=== PATIENT | female | born 1940 | race Hispanic/Latino ===

== ENCOUNTER 2017-08-17 12:50 | Outpatient (CLI) | payer MEDICARE ==
--- NOTE | 2017-08-17 19:20 | PET ---
NUCLEAR MEDICINE PET SCAN BRAIN: 08/17/17 HISTORY: 77-year-old female with G31.09, other frontotemporal dementia. TECHNIQUE: IV injection with 10.3 millicuries of F18-FDG. Attenuation correction CT and PET scan of the brain pe rformed. FINDINGS: There is decreased uptake in the bilateral anterior temporal lobes, which is typical for FTD. Uptake in the bilateral frontal lobes is relatively preserved, which would be atypical for FTD (there is asymmetrically mildly decreased uptake in some portions of the left frontal lobe compared to the right). Uptake in the bilateral basal ganglia and thalami is preserved, which is typical for FTD. Uptake in the precuneus and posterior cingulate gyrus is preserved, while uptake in the anterior cing ulate gyrus is decreased, which is typical pattern for early FTD. The uptake in the bilateral posterior temporal parietal, and occipital lobes, is preserved, which is also typical for FTD. IMPRESSION: Overall pattern is consistent with frontotemporal dementia, perhaps a temporal-predominant variant. POS: [facility]
== END 2017-08-17 12:51 | disposition home or self-care (01) ==
LOC: PET 12:50
PROVIDERS: ATTEND Psychiatry & Neurology Neurology
DX: G31.09 Other frontotemporal neurocognitive disorder (principal)
CPT/HCPCS: 78608; A9552

== ENCOUNTER 2017-11-14 14:41 | Emergency (ER) | payer MEDICARE ==
[2017-11-14 15:47] LABS: #Lymphocytes 0.9 thou/uL (1.20-3.40); #Monocytes 0.4 thou/uL (0.11-0.59); %Basophils 0.6 % (0.0-1.0); %Eosinophils 1.3 % (0.0-10.0); %Lymphocytes 26.1 % (21.0-51.0); %Monocytes 11.1 % (0.0-10.0); Hemoglobin 11.7 g/dL (12.0-16.0); Mean Corpuscular Hemoglobin 33.6 pg (27.0-31.0); Platelet Count 125 thou/uL (130-400); White Blood Cell (WBC) Count 3.3 thou/uL (4.8-10.8)
[2017-11-14 15:54] LABS: INR-International Normal Ratio 1.3; PTT 37.9 SEC (22.9-36.1); Prothrombin Time 16.9 SEC (12.0-14.7)
[2017-11-14 16:07] LABS: ALT (SGPT) Less than 7 U/L (8-55); AST (SGOT) 13 U/L (5-34); Albumin 3.9 g/dL (3.4-4.8); Alkaline Phosphatase 30 U/L (40-150); Anion Gap 13 mmol/L (10-20); BUN (Urea Nitrogen) 28 mg/dL (9.8-20.1); Bilirubin, Total 0.5 mg/dL (0.2-1.2); Calc. Creatinine Clearance 0 mL/min (70-130); Calcium 9.9 mg/dL (7.8-10.44); Carbon Dioxide 26 mmol/L (23-31); Chloride 103 mmol/L (98-107); Estimated GFR-MDRD 39; Globulin 2.7 g/dL (2.4-3.5); Glucose 86 mg/dL (83-110); Potassium 4.1 mmol/L (3.5-5.1); Protein, Total 6.6 g/dL (6.0-8.3); Sodium 138 mmol/L (136-145)
--- NOTE | 2017-11-14 16:35 | CT ---
BRAIN CT WITHOUT IV CONTRAST: History: 77-year-old female with history of head injury following trauma. Comparison: 04-21-17 FINDINGS: Atrophy and chronic white matter ischemic change. Old lacunar infarct changes. No mass or midline yuliya ft. No acute hemorrhage. Sinuses and mastoids are clear. IMPRESSION: Stable atrophy and chronic white matter ischemic changes. No mass or bleed. POS: [facility]
[2017-11-14] MEDS ORDERED: Adacel (T-DAP) 0.5 ML VIAL ONE (16:49)
== END 2017-11-14 18:20 | disposition home or self-care (01) ==
LOC: ERS 14:41
DX: S01.01XA Laceration without foreign body of scalp, initial encounter (principal); E78.5 Hyperlipidemia, unspecified; F03.90 Unspecified dementia, unspecified severity, without behavioral disturbance, psychotic disturbance, mood disturbance, and anxiety; I25.10 Atherosclerotic heart disease of native coronary artery without angina pectoris; E11.9 Type 2 diabetes mellitus without complications; I10 Essential (primary) hypertension; F32.9 Major depressive disorder, single episode, unspecified; Z79.02 Long term (current) use of antithrombotics/antiplatelets; Z79.82 Long term (current) use of aspirin; Z79.899 Other long term (current) drug therapy; Z79.84 Long term (current) use of oral hypoglycemic drugs; W01.190A Fall on same level from slipping, tripping and stumbling with subsequent striking against furniture, initial encounter; Y92.009 Unspecified place in unspecified non-institutional (private) residence as the place of occurrence of the external cause
CPT/HCPCS: 12002; 70450; 80053; 85025; 85610; 85730; 90471; 90715

== ENCOUNTER 2017-11-22 17:02 | Emergency (ER) | payer MEDICARE ==
[2017-11-22] MEDS ORDERED: Lidocaine 1% PF 5 ML VIAL ONE (17:21)
== END 2017-11-22 18:15 | disposition home or self-care (01) ==
LOC: SCSER 17:02
DX: S01.01XD Laceration without foreign body of scalp, subsequent encounter (principal); I25.10 Atherosclerotic heart disease of native coronary artery without angina pectoris; E11.9 Type 2 diabetes mellitus without complications; I10 Essential (primary) hypertension; F32.9 Major depressive disorder, single episode, unspecified; Z86.73 Personal history of transient ischemic attack (TIA), and cerebral infarction without residual deficits; Z79.82 Long term (current) use of aspirin; Z79.899 Other long term (current) drug therapy; X58.XXXD Exposure to other specified factors, subsequent encounter
CPT/HCPCS: J2001

== ENCOUNTER 2019-03-31 13:54 | Outpatient (CLI) | payer MEDICARE, OTHER ==
--- NOTE | 2019-03-31 14:46 | MMO ---
Bilateral MAMMO Bilat Screen [facility]. CLINICAL HISTORY: Patient is 78 years old and is seen for screening. The patient has the following family history of breast cancer: daughter, at age 48 and daughter, at age 49. The patient has no personal history of cancer. VIEWS: The views performed were: bilateral craniocaudal with tomosynthesis and bilateral mediolateral oblique with tomosynthesis. FILMS COMPARED: The present examination has been compared to prior imaging studies performed at [facility] on 03/25/2015, 03/27/2016, 03/29/2017 and 03/30/2018. MAMMOGRAM FINDINGS: The breasts are heterogeneously dense, which could obscure a lesion on mammography. There are stable benign appearing calcifications seen in both breasts. There are also vascular calcifications. There are no suspicious masses, suspicious calcifications, or new areas of architectural distortion. IMPRESSION: THERE IS NO MAMMOGRAPHIC EVIDENCE OF MALIGNANCY. A ROUTINE FOLLOW-UP MAMMOGRAM IN 1 YEAR IS RECOMMENDED. THE RESULTS OF THIS EXAM WERE SENT TO THE PATIENT. ACR BI-RADS Category 2 - Benign finding MAMMOGRAPHY NOTE: 1. A negative mammogram report should not delay a biopsy if a dominant of clinically suspicious mass is present. 2. Approximately 10% to 15% of breast cancers are not detected by mammography. 3. Adenosis and dense breasts may obscure an underlying neoplasm. Reported by: MAXIMINO PARRA MD Electonically Signed: [id number]
== END 2019-03-31 13:55 | disposition home or self-care (01) ==
LOC: BICMAMMO 13:54
PROVIDERS: ATTEND Specialist
DX: Z12.31 Encounter for screening mammogram for malignant neoplasm of breast (principal); Z80.3 Family history of malignant neoplasm of breast
CPT/HCPCS: 77063; 77067

== ENCOUNTER 2021-08-23 10:50 | Inpatient (IN) | payer MEDICARE ==
[2021-08-23 11:36] LABS: #Eosinphils 0.1 thou/uL (0.0-0.7); #Lymphocytes 0.8 thou/uL (1.20-3.40); #Monocytes 0.5 thou/uL (0.11-0.59); #Neutrophils 5.7 thou/uL (1.40-6.50); %Basophils 0.4 % (0.0-1.0); %Eosinophils 1.8 % (0.0-10.0); %Lymphocytes 10.6 % (21.0-51.0); %Neutrophils 80.3 % (42.0-75.0); Hemoglobin 12.4 g/dL (12.0-16.0); Mean Corpuscular HGB CONC 33.4 g/dL (32.0-36.0); Mean Corpuscular Hemoglobin 33.6 pg (27.0-31.0); Platelet Count 142 thou/uL (130-400); RBC Distribution Width 12.8 % (11.5-14.5); White Blood Cell (WBC) Count 7.2 thou/uL (4.8-10.8)
[2021-08-23 11:47] LABS: INR-International Normal Ratio 1.1; Prothrombin Time 14.5 sec (12.0-14.7)
[2021-08-23 11:48] LABS: PTT 37.5 sec (22.9-36.1)
[2021-08-23] MEDS ORDERED: Promethazine HCl 25 MG/ML VIAL IM PRN (11:54)
[2021-08-23] MEDS ORDERED: Dextrose 5% in Water 1,000 ML IV PRN (11:54)
[2021-08-23] MEDS ORDERED: Dextrose 50% Abboject 50 ML SYRINGE SLOW IVP PRN (11:54)
[2021-08-23] MEDS ORDERED: Ondansetron PF 4 MG/2 ML Vial IVP PRN (11:54)
[2021-08-23] MEDS ORDERED: hydrALAZINE 20 MG/ML VIAL SLOW IVP PRN (11:55)
[2021-08-23 11:58] LABS: ALT (SGPT) 8 U/L (8-55); AST (SGOT) 17 U/L (5-34); Albumin 3.8 g/dL (3.4-4.8); Alkaline Phosphatase 69 U/L (40-110); Anion Gap 8 mmol/L (10-20); BUN (Urea Nitrogen) 18 mg/dL (9.8-20.1); Bilirubin, Total 0.6 mg/dL (0.2-1.2); Calc. Creatinine Clearance 0 mL/min (70-130); Calcium 9.6 mg/dL (7.8-10.44); Carbon Dioxide 31 mmol/L (23-31); Chloride 102 mmol/L (98-107); Globulin 3.3 g/dL (2.4-3.5); Glucose 141 mg/dL (83-110); Potassium 4.4 mmol/L (3.5-5.1); Protein, Total 7.1 g/dL (5.8-8.1); Sodium 137 mmol/L (136-145)
[2021-08-23] MEDS ORDERED: ceFAZolin 2 GM/DEX 5% 100 ML BAG ONE (12:35)
[2021-08-23 13:07] LABS: SARS-CoV-2 NAA Rapid Test Not Detected (NotDetected)
[2021-08-23] MEDS: Morphine 4 MG/ML VIAL SLOW IVP PRN (15:14)
[2021-08-23 15:30] VITALS: BMI 28.3
[2021-08-23 20:09] LABS: Glucose 107 mg/dL (83-110)
[2021-08-23 20:18] LABS: Troponin I 0.022 ng/mL (< 0.028)
[2021-08-23] MEDS: Famotidine 20 MG TAB PO SCH (20:50)
[2021-08-23] MEDS: Rosuvastatin 10 MG TAB PO SCH (20:51)
[2021-08-23] MEDS: Potassium Chloride 20 MEQ TAB PO SCH (20:51)
[2021-08-23] MEDS: Carvedilol 25 MG TAB PO SCH (20:51)
[2021-08-23] MEDS: Ferrous Sulfate 325 MG TAB PO SCH (20:54)
[2021-08-24 00:11] LABS: Glucose 132 mg/dL (83-110)
[2021-08-24] MEDS: Morphine 4 MG/ML VIAL SLOW IVP PRN (04:06)
[2021-08-24 06:09] LABS: #Lymphocytes 0.5 thou/uL (1.20-3.40); #Monocytes 0.6 thou/uL (0.11-0.59); #Neutrophils 4.5 thou/uL (1.40-6.50); %Basophils 0.3 % (0.0-1.0); %Eosinophils 0.1 % (0.0-10.0); %Lymphocytes 8.9 % (21.0-51.0); %Monocytes 11.1 % (0.0-10.0); %Neutrophils 79.7 % (42.0-75.0); Hemoglobin 10.5 g/dL (12.0-16.0); Mean Corpuscular HGB CONC 33.5 g/dL (32.0-36.0); Mean Corpuscular Hemoglobin 33.5 pg (27.0-31.0); Mean Corpuscular Volume 99.9 fL (78.0-98.0); Mean Platelet Volume 8.2 fL (7.4-10.4); Platelet Count 124 thou/uL (130-400); RBC Distribution Width 12.6 % (11.5-14.5); Red Blood Cell (RBC) Count 3.13 mill/uL (4.20-5.40); White Blood Cell (WBC) Count 5.6 thou/uL (4.8-10.8)
[2021-08-24 06:21] LABS: Glucose 151 mg/dL (83-110)
[2021-08-24 06:25] LABS: Phosphorus 2.8 mg/dL (2.3-4.7)
[2021-08-24 06:27] LABS: Anion Gap 9 mmol/L (10-20); BUN (Urea Nitrogen) 17 mg/dL (9.8-20.1); Calc. Creatinine Clearance 49 mL/min (70-130); Calcium 9.3 mg/dL (7.8-10.44); Carbon Dioxide 29 mmol/L (23-31); Chloride 103 mmol/L (98-107); Glucose 141 mg/dL (83-110); Magnesium 1.9 mg/dL (1.6-2.6); Potassium 4.4 mmol/L (3.5-5.1); Sodium 137 mmol/L (136-145)
[2021-08-24] MEDS ORDERED: Fentanyl 100 MCG/2 ML VIAL ONE (07:01)
[2021-08-24] MEDS ORDERED: Sodium Chloride 0.9% 10 ML ONE (07:01)
[2021-08-24] MEDS ORDERED: HYDROmorphone 2 MG/ML VIAL ONE (07:01)
[2021-08-24] MEDS ORDERED: ceFAZolin 2 GM/Dextrose 50 ML 2 GM in Premix Bag 1 BAG IVPB SCH (07:15)
[2021-08-24] MEDS ORDERED: ceFAZolin 2 GM/DEX 5% 100 ML BAG ONE (07:50)
[2021-08-24] MEDS ORDERED: Phenylephrine 10 MG/ML VIAL ONE (08:11)
[2021-08-24] MEDS ORDERED: PHENYLEPHRINE-NS 100 MCG/ML 10 ML SYRINGE ONE ×2 (08:11→08:12)
[2021-08-24] MEDS ORDERED: Rocuronium Bromide 10 MG/ML (10ML VIAL) ONE (08:12)
[2021-08-24] MEDS ORDERED: Glycopyrrolate 0.2 MG/ML 5 ML SYRINGE ONE (08:12)
[2021-08-24] MEDS ORDERED: Dexamethasone 20 MG/5 ML VIAL ONE (08:12)
[2021-08-24] MEDS ORDERED: Lidocaine 1% PF 5 ML VIAL ONE (08:12)
[2021-08-24] MEDS ORDERED: PROPOFOL 200 MG/20 ML VIAL ONE (08:12)
[2021-08-24] MEDS ORDERED: Ondansetron PF 4 MG/2 ML Vial ONE (08:12)
[2021-08-24] MEDS ORDERED: Promethazine HCl 25 MG/ML VIAL IM PRN (08:51)
[2021-08-24] MEDS ORDERED: Promethazine HCl 25 MG/ML VIAL IVPB PRN (08:51)
[2021-08-24] MEDS ORDERED: Ondansetron HCl/PF 4 MG/2 ML Vial IVP PRN (08:51)
[2021-08-24] MEDS ORDERED: Non-Formulary Item 1 EACH (Valsartan [Valsartan] 320 MG Tablet) PO SCH (09:00)
[2021-08-24] MEDS: Famotidine 20 MG TAB PO SCH ×2 (09:04→20:50)
[2021-08-24] MEDS: Carvedilol 25 MG TAB PO SCH ×2 (09:04→23:36)
[2021-08-24] MEDS: Escitalopram Oxalate 10 mg Tablet PO SCH (09:04)
[2021-08-24] MEDS: Potassium Chloride 20 MEQ TAB PO SCH ×2 (09:05→20:50)
[2021-08-24] MEDS: Ferrous Sulfate 325 MG TAB PO SCH ×2 (09:05→20:50)
[2021-08-24] MEDS: Valsartan 80 MG TAB PO SCH (09:05)
[2021-08-24] MEDS: Furosemide 40 MG TAB PO SCH (09:05)
[2021-08-24] MEDS ORDERED: SUGAMMADEX SODIUM 200 MG/2 ML VIAL ONE (10:16)
[2021-08-24 12:58] LABS: Glucose 162 mg/dL (83-110)
[2021-08-24] MEDS ORDERED: Cyclobenzaprine 10 MG TAB PO PRN (15:07)
[2021-08-24] MEDS ORDERED: Ibuprofen 200 MG TAB PO SCH ×2 (15:15→22:00)
[2021-08-24] MEDS: Acetaminophen 325 MG TAB PO SCH ×2 (15:48→20:51)
[2021-08-24] MEDS: ceFAZolin Sodium (SDC) 2 GM in Premix Bag 1 BAG IVPB SCH (15:53)
[2021-08-24] MEDS: Acetaminophen/Codeine 30-300mg Tablet PO SCH (17:19)
[2021-08-24] MEDS: Rosuvastatin 10 MG TAB PO SCH (20:50)
[2021-08-24] MEDS: Aspirin 81 mg Enteric Coated Tablet PO SCH (20:50)
[2021-08-24] MEDS: Senokot S 8.6-50 MG TAB PO SCH (20:51)
[2021-08-25] MEDS: ceFAZolin Sodium/D5W 2 GM in Premix Bag 1 BAG IVPB SCH ×2 (00:07→09:51)
[2021-08-25] MEDS: Acetaminophen/Codeine 30-300mg Tablet PO SCH ×4 (00:10→17:56)
[2021-08-25] MEDS: ceFAZolin Sodium (SDC) 2 GM in Premix Bag 1 BAG IVPB SCH (01:05)
[2021-08-25 06:15] LABS: #Lymphocytes 0.5 thou/uL (1.20-3.40); #Monocytes 0.8 thou/uL (0.11-0.59); #Neutrophils 5.9 thou/uL (1.40-6.50); %Basophils 0.3 % (0.0-1.0); %Eosinophils 0.2 % (0.0-10.0); %Lymphocytes 7.2 % (21.0-51.0); %Monocytes 10.8 % (0.0-10.0); %Neutrophils 81.5 % (42.0-75.0); Hemoglobin 8.1 g/dL (12.0-16.0); Mean Corpuscular HGB CONC 33.3 g/dL (32.0-36.0); Mean Corpuscular Hemoglobin 33.6 pg (27.0-31.0); Mean Platelet Volume 8.6 fL (7.4-10.4); Platelet Count 112 thou/uL (130-400); RBC Distribution Width 12.7 % (11.5-14.5); Red Blood Cell (RBC) Count 2.42 mill/uL (4.20-5.40); White Blood Cell (WBC) Count 7.2 thou/uL (4.8-10.8)
[2021-08-25] MEDS: Acetaminophen 325 MG TAB PO SCH ×4 (06:25→21:08)
[2021-08-25] MEDS ORDERED: Hydrocortisone Sod Succ/PF 100 mg/2 ml Vial IVP SCH (07:15)
[2021-08-25] MEDS ORDERED: Sodium Chloride 0.9% 500 ML IV SCH (09:15)
[2021-08-25] MEDS: Potassium Chloride 20 MEQ TAB PO SCH ×2 (09:20→21:05)
[2021-08-25] MEDS: Polyethylene Glycol 3350 17 GM Packet PO SCH (09:20)
[2021-08-25] MEDS: Senokot S 8.6-50 MG TAB PO SCH ×2 (09:20→21:05)
[2021-08-25] MEDS: Valsartan 80 MG TAB PO SCH (09:20)
[2021-08-25] MEDS: Escitalopram Oxalate 10 mg Tablet PO SCH (09:21)
[2021-08-25] MEDS: Ascorbic Acid 500 mg Chewable Tablet PO SCH ×2 (09:21→21:05)
[2021-08-25] MEDS: Aspirin 81 mg Enteric Coated Tablet PO SCH ×2 (09:21→21:05)
[2021-08-25] MEDS: Ferrous Sulfate 325 MG TAB PO SCH ×3 (09:23→18:45)
[2021-08-25] MEDS: Furosemide 40 MG TAB PO SCH (09:24)
[2021-08-25] MEDS ORDERED: Magnesium Citrate 300 ML BOT PO SCH (10:45)
[2021-08-25] MEDS ORDERED: Calcium Chloride 1 GM/10 ML Abboject SYRINGE IVP SCH (13:00)
[2021-08-25] MEDS: Hydrocortisone Sod Succ/PF 100 mg/2 ml Vial IVP SCH ×2 (14:16→21:06)
[2021-08-25] MEDS: Carvedilol 3.125 MG TAB PO SCH (17:51)
[2021-08-26] MEDS: HumaLOG 300 UNITS/3 ML VIAL SC PRN ×2 (00:35→17:53)
[2021-08-26] MEDS: Acetaminophen/Codeine 30-300mg Tablet PO SCH ×4 (00:46→17:52)
[2021-08-26] MEDS: Acetaminophen 325 MG TAB PO SCH ×4 (03:41→20:52)
[2021-08-26] MEDS: Hydrocortisone Sod Succ/PF 100 mg/2 ml Vial IVP SCH (06:10)
[2021-08-26 06:15] LABS: #Lymphocytes 0.5 thou/uL (1.20-3.40); #Monocytes 0.9 thou/uL (0.11-0.59); #Neutrophils 6.6 thou/uL (1.40-6.50); %Basophils 0.2 % (0.0-1.0); %Eosinophils 0.2 % (0.0-10.0); %Lymphocytes 6.7 % (21.0-51.0); %Monocytes 10.6 % (0.0-10.0); %Neutrophils 82.3 % (42.0-75.0); Hemoglobin 7.2 g/dL (12.0-16.0); Mean Corpuscular HGB CONC 32.5 g/dL (32.0-36.0); Mean Platelet Volume 8.9 fL (7.4-10.4); Platelet Count 102 thou/uL (130-400); RBC Distribution Width 12.8 % (11.5-14.5); Red Blood Cell (RBC) Count 2.18 mill/uL (4.20-5.40)
[2021-08-26] MEDS: Ascorbic Acid 500 mg Chewable Tablet PO SCH ×2 (08:52→20:53)
[2021-08-26] MEDS: Carvedilol 3.125 MG TAB PO SCH ×2 (08:52→17:52)
[2021-08-26] MEDS: Aspirin 81 mg Enteric Coated Tablet PO SCH ×2 (08:52→20:54)
[2021-08-26] MEDS: Escitalopram Oxalate 10 mg Tablet PO SCH (08:53)
[2021-08-26] MEDS: Ferrous Sulfate 325 MG TAB PO SCH ×2 (08:53→17:53)
[2021-08-26] MEDS: Potassium Chloride 20 MEQ TAB PO SCH ×2 (08:53→20:53)
[2021-08-26] MEDS: Senokot S 8.6-50 MG TAB PO SCH ×2 (08:53→20:53)
[2021-08-26] MEDS: Polyethylene Glycol 3350 17 GM Packet PO SCH (08:53)
[2021-08-26 15:11] LABS: #Lymphocytes 0.6 thou/uL (1.20-3.40); #Monocytes 0.8 thou/uL (0.11-0.59); #Neutrophils 6.3 thou/uL (1.40-6.50); %Eosinophils 0.1 % (0.0-10.0); %Lymphocytes 8.2 % (21.0-51.0); %Monocytes 9.9 % (0.0-10.0); %Neutrophils 81.8 % (42.0-75.0); Hemoglobin 7.2 g/dL (12.0-16.0); Mean Corpuscular HGB CONC 32.4 g/dL (32.0-36.0); Mean Platelet Volume 8.5 fL (7.4-10.4); Platelet Count 113 thou/uL (130-400); RBC Distribution Width 12.9 % (11.5-14.5); Red Blood Cell (RBC) Count 2.17 mill/uL (4.20-5.40); White Blood Cell (WBC) Count 7.8 thou/uL (4.8-10.8)
[2021-08-27] MEDS: Acetaminophen/Codeine 30-300mg Tablet PO SCH ×4 (00:27→17:40)
[2021-08-27] MEDS: Acetaminophen 325 MG TAB PO SCH ×4 (04:04→20:21)
[2021-08-27 05:53] LABS: Hemoglobin 8.6 g/dL (12.0-16.0)
[2021-08-27] MEDS: Carvedilol 3.125 MG TAB PO SCH ×2 (08:38→17:40)
[2021-08-27] MEDS: Potassium Chloride 20 MEQ TAB PO SCH ×2 (09:48→20:20)
[2021-08-27] MEDS: Senokot S 8.6-50 MG TAB PO SCH ×2 (09:48→20:20)
[2021-08-27] MEDS: Ferrous Sulfate 325 MG TAB PO SCH ×2 (09:48→17:40)
[2021-08-27] MEDS: Ascorbic Acid 500 mg Chewable Tablet PO SCH ×2 (09:48→20:21)
[2021-08-27] MEDS: Hydrocortisone Sod Succ/PF 100 mg/2 ml Vial IVP SCH ×2 (09:48→17:41)
[2021-08-27] MEDS: Polyethylene Glycol 3350 17 GM Packet PO SCH (09:48)
[2021-08-27] MEDS: Escitalopram Oxalate 10 mg Tablet PO SCH (09:48)
[2021-08-27] MEDS ORDERED: Clopidogrel Bisulfate 75 MG TAB PO SCH (21:00)
[2021-08-28] MEDS: Hydrocortisone Sod Succ/PF 100 mg/2 ml Vial IVP SCH (00:24)
[2021-08-28] MEDS: Acetaminophen/Codeine 30-300mg Tablet PO SCH ×3 (00:24→11:37)
[2021-08-28] MEDS: Acetaminophen 325 MG TAB PO SCH ×2 (04:03→09:09)
[2021-08-28 05:08] LABS: Hemoglobin 9.3 g/dL (12.0-16.0)
[2021-08-28] MEDS: Polyethylene Glycol 3350 17 GM Packet PO SCH (09:08)
[2021-08-28] MEDS: Escitalopram Oxalate 10 mg Tablet PO SCH (09:08)
[2021-08-28] MEDS: Potassium Chloride 20 MEQ TAB PO SCH (09:09)
[2021-08-28] MEDS: Ascorbic Acid 500 mg Chewable Tablet PO SCH (09:09)
[2021-08-28] MEDS: Carvedilol 3.125 MG TAB PO SCH (09:09)
[2021-08-28] MEDS: Senokot S 8.6-50 MG TAB PO SCH (09:09)
[2021-08-28] MEDS: Ferrous Sulfate 325 MG TAB PO SCH (09:09)
[2021-08-28 11:57] VITALS: BP 130/72; TEMP 98.1
[2021-08-30] MEDS ORDERED: Ergocalciferol 1.25 MG(50,000 UNITS) CAP PO SCH (09:00)
== END 2021-08-28 13:35 | disposition home health service (06) | DRG 481 ==
LOC: ERS 10:50 → SURG A 12:15 → SURG B 14:04
PROVIDERS: ADMIT Specialist; ATTEND Surgery
PROC: 0QS606Z Reposition Right Upper Femur with Intramedullary Internal Fixation Device, Open Approach (ICD-10-PCS; principal; 2021-08-24)
PROC: 30233N0 Transfusion of Autologous Red Blood Cells into Peripheral Vein, Percutaneous Approach (ICD-10-PCS; 2021-08-26)
DX: S72.21XA Displaced subtrochanteric fracture of right femur, initial encounter for closed fracture (principal); D62 Acute posthemorrhagic anemia; E27.40 Unspecified adrenocortical insufficiency; Z20.822 Contact with and (suspected) exposure to COVID-19; E78.5 Hyperlipidemia, unspecified; E78.00 Pure hypercholesterolemia, unspecified; F03.90 Unspecified dementia, unspecified severity, without behavioral disturbance, psychotic disturbance, mood disturbance, and anxiety; I25.10 Atherosclerotic heart disease of native coronary artery without angina pectoris; E11.9 Type 2 diabetes mellitus without complications; F32.A Depression, unspecified; R94.31 Abnormal electrocardiogram [ECG] [EKG]; I50.9 Heart failure, unspecified; I11.0 Hypertensive heart disease with heart failure; W18.30XA Fall on same level, unspecified, initial encounter; R29.6 Repeated falls; Y92.000 Kitchen of unspecified non-institutional (private) residence as the place of occurrence of the external cause; Z98.49 Cataract extraction status, unspecified eye; Z86.73 Personal history of transient ischemic attack (TIA), and cerebral infarction without residual deficits; Z91.81 History of falling; Z79.82 Long term (current) use of aspirin; Z79.02 Long term (current) use of antithrombotics/antiplatelets
CPT/HCPCS: 36415; 36416; 36430; 71045; 76000; 80048; 80053; 82533; 83735; 84100; 84484; 85014; 85018; 85025; 85610; 85730; 86850; 86900; 86901; 93005; 93010; 93306; 93880; C1713; C1776; G0390; J0690; J1100; J1170; J1720; J1815; J2270; J2370; J2405; J2704; J3010; J7030; P9016; U0002